=== PATIENT | female | born 1970 | race Caucasian/White ===

== ENCOUNTER 2023-12-18 06:21 | Day surgery (SDC) | payer OTHER, SELFPAY ==
[2023-12-05 08:05] VITALS: BMI 42.1
[2023-12-05 09:00] LABS: Hematocrit 42.9 % (37.0-47.0); Hemoglobin 13.9 g/dL (12.0-16.0); Mean Corp Hgb Conc. 32.4 g/dL (33.0-37.0); Mean Corpuscular Hgb 26.8 pg (27.0-31.0); Mean Corpuscular Volume 82.7 fL (81.0-99.0); Mean Platelet Volume 9.5 fL (7.4-10.4); Platelet Count 262 10^3/uL (130-400); Red Blood Cell Count 5.19 10^6/uL (4.20-5.40); Red Cell Dist. Width 13.1 % (11.5-14.5); White Blood Cell Count 7.4 10^3/uL (4.8-10.8)
[2023-12-05 09:21] LABS: INR 0.94; PT 12.5 Sec (11.4-14.6)
[2023-12-05 09:22] LABS: APTT 27.7 Sec (23.4-35.0)
[2023-12-05 09:46] LABS: ALT (SGPT) 40 U/L (0-35); AST (SGOT) 33 U/L (14-36); Albumin 4.2 g/dl (3.5-5.0); Alkaline Phosphatase 112 U/L (38-126); Blood Urea Nitrogen 11 mg/dl (7-17); Carbon Dioxide 29 mmol/L (22-30); Chloride 104 mmol/L (98-107); Estimated Creatinine Clearance > 125 ml/min; Glucose 82 mg/dl (70-99); Potassium 4.2 mmol/L (3.5-5.1); Sodium 139 mmol/L (135-145); Total Bilirubin 0.6 mg/dl (0.2-1.3); Total Protein 6.7 g/dl (6.3-8.2); eGFR > 60.00
--- NOTE | 2023-12-05 12:34 | PTCARENOTE ---
Patients 2/7 EKG abnormal- reviewed by Dr. Soto- no additional interventions requested
[2023-12-18] VITALS (9 sets, daily range): BP systolic 123–144; BP diastolic 58–84; BMI 42.1
[2023-12-18 11:41] LABS: Glucose - Point of Care 186 mg/dl (70-99)
[2023-12-18] MEDS: TYLENOL 1000 MG PO (11:41)
[2023-12-18] MEDS: HEPARIN 5000 UNITS SC (11:42)
[2023-12-18] MEDS: NORMOSOL-R 1000 IV (11:42)
[2023-12-18] MEDS: NEURONTIN 300 MG PO (11:49)
--- NOTE | 2023-12-18 14:16 | OR.RPT ---
Operative Report
Operative Report
DATE OF OPERATION: December 18, 2023
PREOPERATIVE DIAGNOSIS: Hyperthyroidism
POSTOPERATIVE DIAGNOSIS: Hyperthyroidism with substernal multinodular goiter
SURGEON: Kevin Dasilva M.D.
OPERATION: His Total Thyroidectomy Total - 73333
ANESTHESIA: GET
ESTIMATED BLOOD LOSS: 10 cc
DRAINS: None
SPECIMEN: total thyroid
FINDINGS: substernal multinodular goiter
COMPLICATIONS:�None
PROCEDURE:
The patient was taken to the operating room and placed in the usual supine position. After adequate general endotracheal anesthesia was established, the patient�s neck was extended, prepped, and draped in the typical sterile fashion. A 5 cm
transcervical incision was made two fingerbreadths above the sternal notch. The skin incision was made with the #15 blade, which was taken through the skin into the subcutaneous tissue. The underlying platysma muscle was divided, and subplatysmal
flaps were created superiorly to the thyroid cartilage and inferiorly to the sternal notch. Strap muscles were identified and at the midline.
Attention was turned to the patient�s right thyroid lobe. The right thyroid lobe was mobilized medially. During this process, the right middle thyroid vein and inferior thyroid artery were dissected and ligated with Ligasure. Next, the right
superior pole was taken down by dissecting and transecting the superior pole vessels with a Ligasure. The right thyroid lobe was mobilized medially. During this process, the right recurrent laryngeal nerve was identified and preserved throughout its
entire course. The right superior and inferior parathyroid glands were identified and preserved.
Next, attention was turned to the patient�s left thyroid lobe. The left thyroid lobe was mobilized medially. During this process, the left middle thyroid vein and inferior thyroid artery were dissected and ligated with Ligasure. There was a
substernal extension, which was delivered out of the mediastinum through the cervical incision. Next, the left superior pole was taken down by dissecting and transecting the superior pole vessels with a Ligasure. The left thyroid lobe was mobilized
medially. During this process, the left recurrent laryngeal nerve was identified and preserved throughout its entire course. The left superior parathyroid gland was identified and preserved. The left thyroid lobe with isthmus was resected off the
trachea and sent to the pathology department
After obtaining adequate hemostasis, the strap muscle was approximated with #3-0 Vicryl in a running fashion, and platysma muscles were reapproximated with #3-0 Vicryl in an interrupted fashion, and the skin was approximated with #4-0 Monocryl in a
running subcuticular fashion. Steri-strips and sterile dressings were placed. The patient tolerated the procedure well. The final instrument, needle, and sponge counts were correct.
[2023-12-18] MEDS: NOVOLOG vial 2 UNITS SC (14:38)
[2023-12-18 14:40] LABS: Glucose - Point of Care 214 mg/dl (70-99)
== END 2023-12-18 16:15 | disposition home or self-care (01) ==
LOC: SDS 06:21
PROVIDERS: ATTENDING PHYSICIAN Surgery; FAMILY PHYSICIAN Internal Medicine; OTHER PHYSICIAN Internal Medicine Endocrinology, Diabetes & Metabolism
DX: D44.0 Neoplasm of uncertain behavior of thyroid gland (principal); E05.20 Thyrotoxicosis with toxic multinodular goiter without thyrotoxic crisis or storm
CPT/HCPCS: 60240; 88307; 36415; 80053; 82962; 85027; 85610; 85730; 88341; 88342; 93005; C9250